=== PATIENT | male | born 2000 | race Asian ===

== ENCOUNTER 2022-04-17 13:15 | Emergency (ER) | payer MEDICAID ==
[~2022-04-17] VITALS: Ht 162.6 cm; Wt 100.0 kg
[2022-04-17] MEDS ORDERED: ondansetron/PF 4mg/2ml inj IV ONE (13:25)
[2022-04-17] MEDS ORDERED: morphine 4 MG/ML inj SYRINge IV ONE ×2 (13:25→17:21)
[2022-04-17 15:01] LABS: BASOPHILS # (AUTO) 0.1 X10'3 (0-0.2); BASOPHILS % (AUTO) 0.3 % (0-1); EOSINOPHILS # (AUTO) 0.1 X10'3 (0-0.9); EOSINOPHILS % (AUTO) 0.5 % (0-6); HEMATOCRIT 46.4 % (42.0-52.0); HEMOGLOBIN 15.4 g/dl (14.0-17.9); LYMPHOCYTES # (AUTO) 1.1 X10'3 (1.1-4.8); LYMPHOCYTES % (AUTO) 6.6 % (21-51); MEAN CORPUSCULAR HGB CONC 33.3 g/dL (33.0-36.5); MEAN CORPUSCULAR VOLUME 84.2 FL (78-98); MEAN PLATELET VOLUME 8.1 FL (7.4-10.4); MONOCYTES # (AUTO) 1.1 X10'3 (0-0.9); MONOCYTES % (AUTO) 6.8 % (2-12); NEUTROPHILS # (AUTO) 14.1 X10'3 (1.8-7.7); NEUTROPHILS % (AUTO) 85.8 % (42-75); PLATELET COUNT 295 X10'3 (140-440); RED BLOOD COUNT 5.51 X10'6 (4.70-6.10); RED CELL DISTRIBUTION WIDTH 13.5 % (11.5-14.5); WHITE BLOOD COUNT 16.4 X10'3 (4.5-11.0)
[2022-04-17 15:08] LABS: ALANINE AMINOTRANSFERASE 35 U/L (12-78); ALBUMIN 4.1 G/DL (3.4-5.0); ALKALINE PHOSPHATASE 75 IU/L (20-180); ANION GAP 10 (8-16); ASPARTATE AMINO TRANSFERASE 36 U/L (10-37); BILIRUBIN,TOTAL 0.6 MG/DL (0.1-1.0); BLOOD UREA NITROGEN 17 MG/DL (7-18); CALCIUM 9.5 MG/DL (8.5-10.1); CHLORIDE 102 MMOL/L (99-107); GLUCOSE 125 MG/DL (70-104); SODIUM 141 MMOL/L (135-145); TOTAL CARBON DIOXIDE 28.9 MMOL/L (24-32); TOTAL PROTEIN 8.3 G/DL (6.4-8.2); eGFR > 90 ML/MIN
[2022-04-17 17:00] VITALS: BP 130/81
== END 2022-04-17 18:10 | disposition short-term general hospital (02) ==
LOC: EDBD 13:16 → ER 13:16
DX: S72.051A Unspecified fracture of head of right femur, initial encounter for closed fracture (principal); V29.99XA Rider (driver) (passenger) of other motorcycle injured in unspecified traffic accident, initial encounter; Y93.89 Activity, other specified; Y92.89 Other specified places as the place of occurrence of the external cause; Y99.8 Other external cause status
CPT/HCPCS: 36415; 70450; 70486; 72192; 73502; 80053; 85025; 96374; 96375; 96376; 99285; J2270; J2405; J7030